=== PATIENT | male | born 1980 | race Caucasian/White ===

== ENCOUNTER → 2019-11-11 | Outpatient (CLI) | payer OTHER ==
--- NOTE | 2019-11-11 18:50 | MR ---
EXAMINATION TYPE: MR lumbar spine wo con DATE OF EXAM: 11/11/2019 COMPARISON: NONE HISTORY: LBP, wily leg pain, difficulty walking since 2008 per patient. TECHNIQUE: Multiplanar, multisequence imaging of the lumbar spine is performed without IV contrast. FINDINGS: There is levoconvex scoliosis centered at L2 level. Alignment is straightened and sagittal images. Sagittal images of the lumbar spine show vertebral body heights to appear satisfactory. Their is multilevel disc desiccation and disc space narrowing fairly moderate throughout the L2-L3 through the L5-S1 levels. Annular tears posteriorly with increased signal L2-L3 and L5-S1 levels is present. Fairly advanced disc space narrowing L1-L2 level with heterogeneous Modic type I endplate changes po steriorly and mild to moderate anterior spurring. The conus medullaris is somewhat high in position ending at mid T12 level. No suspicious clumping of lumbosacral nerve roots. Axial images show T12-L1 level to appear within normal limits. Axial images at L1-L2 level show mild/moderate broad-based disc bulge effacing anterior thecal sac. Axial images at the L2-L3 level shows mild to moderate broad-based posterior disc protrusion effacing anterior thecal sac, bilateral neural foramina are patent. Axial images at the L3-L4 level show focal central disc protrusion effacing anterior thecal sac. Bila teral neural foramina are patent. Axial images at L4-L5 level mild facet degenerative changes bilaterally with mild broad disc bulge wi th central disc protrusion component effacing anterior thecal sac. Bilateral neural foramina are ferrer nt. Axial images at L5-S1 level show mild facet degenerative changes bilaterally. There is central disc p rotrusion minimally effacing the anterior thecal sac. Bilateral neural foramina are patent. Paraspinal muscle bulk is preserved. No suspicious retroperitoneal findings. IMPRESSION: Loss of normal lumbar curvature with multilevel degenerative changes quite prominent for patient's age as detailed above.
== END | disposition home or self-care (01) ==
LOC: RADMRIMAIN 16:36
PROVIDERS: ATTEND Family Medicine
DX: M99.73 Connective tissue and disc stenosis of intervertebral foramina of lumbar region (principal); M51.26 Other intervertebral disc displacement, lumbar region; M47.816 Spondylosis without myelopathy or radiculopathy, lumbar region; M41.86 Other forms of scoliosis, lumbar region
CPT/HCPCS: 72148